=== PATIENT | female | born 1985 | race Caucasian/White ===

== ENCOUNTER → 2016-06-18 | Outpatient (CLI) | payer OTHER ==
[2016-06-18 13:33] LABS: CH 31.6; CHCM 33.9; HCT 38.7 % (34.0-46.0); HDW 2.43; MCH 31.3 pg (25.0-35.0); MCHC 33.5 g/dL (31.0-37.0); MCV 93.7 fL (80.0-100.0); Mean Platelet Volume 7.1; RBC 4.13 m/uL (3.80-5.40); RDW 12.9 % (11.5-15.5); WBC 9.1 k/uL (3.8-10.6)
[2016-06-18 13:43] LABS: Glucose 84 mg/dL (74-99); Non-African American GFR(MDRD) >60 (>60 ml/min/1.73 sqM)
[2016-06-18 14:16] LABS: Hepatitis B Surface Ag Index 0.08
[2016-06-20 08:08] LABS: HIV-1/HIV-2 Ab Screen NONREAC (NON REAC)
== END | disposition home or self-care (01) ==
LOC: LABWHC1 13:06
PROVIDERS: ATTEND Obstetrics & Gynecology
DX: Z34.80 Encounter for supervision of other normal pregnancy, unspecified trimester (principal); Z3A.00 Weeks of gestation of pregnancy not specified
CPT/HCPCS: 36415; 82565; 82947; 85027; 86762; 86780; 86850; 86900; 86901; 87340; 87389

== ENCOUNTER 2016-11-01 10:12 | Outpatient (CLI) | payer OTHER ==
[2016-11-01 11:23] VITALS: BP 119/63; PULSE 90; RESP 16; TEMP 98
[2016-11-01 11:36] LABS: Amorphous Sediment,Urine Rare /hpf; Appearance,Urine Cloudy (Clear); Bacteria,Urine Occasional /hpf; Bilirubin,Urine Negative (Negative); Glucose,Urine (UA) Negative (Negative); Ketones,Urine Negative (Negative); Leukocyte Esterase,Urine Negative (Negative); Nitrite,Urine Negative (Negative); PH, Urine 7.5 (5.0-8.0); Particle Count 4182; Protein,Urine Negative (Negative); RBC,Urine <1 /hpf (0-5); Specific Gravity,Urine 1.004 (1.001-1.035); Squamous Epithelial Cell,Urine 1 /hpf (0-4); UA Billing (MACRO vs. MICRO) MICRO; Urobilinogen,Urine <2.0 mg/dL (<2.0); WBC,Urine 1 /hpf (0-5)
--- NOTE | 2016-11-02 16:13 | P.MSEPDOC ---
Presenting Problems - Arrival Data Date of Arrival on Unit: 11/01/16 Time of Arrival on Unit: 10:12 Mode of Transport: Wheelchair - Complaint OB-Reason for Admission/Chief Complaint: Possible Onset of Labor Medical History - Information : 2 Para: 1 Term: 0 : 1 Abortions: Spontaneous or Elective: 0 Number of Living Children: 1 - Gestational Age Expected Date of Delivery: 01/13/17 Gestational Age by ELLEN (wks/days): 29 Weeks and 5 Days - History Complications: Prior Review of Systems - Review of Systems Constitutional: No problems Breast: No problems ENT: No problems Cardiovascular: No problems Respiratory: No problems Gastrointestinal: No problems Genitourinary: No problems Musculoskeletal: No problems Neurological: No problems Skin: No problems Vital Signs - Temperature Temperature: 98.0 F Temperature Source: Oral - Pulse Right Sitting Pulse Rate: 90 Pulse Assessment Method: Automatic Cuff - Respirations Respiratory Rate: 16 Oxygen Delivery Method: Room Air - Blood Pressure Right Arm Blood Pressure: 119/63 Blood Pressure Mean: 81 Blood Pressure Source: Automatic Cuff Medical Screen Scoring (Pre) - Cervical Exam Dilation: 1-3 cm = 1 Effacement: More than 50% = 2 Membranes: Intact - Uterine Contractions Frequency: N/A Duration: N/A Intensity: N/A - Maternal Vital Signs Maternal Temperature: N/A Maternal Blood Pressure: N/A Signs of Preeclampsia: N/A Maternal Respirations: N/A - Maternal Trauma Maternal Trauma: N/A - Assessment Baseline FHR: 130 Heart Rate - NICHD Category: Category I (Normal) = 0 NST: Reactive - Total Score Total Score (Pre): 3 - Level of Risk Level of Risk: Low (0-5) Disposition - Disposition OB Disposition: Physician follow up in office, Discharge to home, Written follow up instructions reviewed Discharge Date: 11/01/16 Discharge Time: 12:45 I agree with the RN Medical Screening Exam: Yes Risk & Benefit of care provided described in d/c instruction: Yes Diagnosis: LABOR WITHOUT DELIVERY, THIRD TRIMESTER
== END 2016-11-01 12:45 | disposition home or self-care (01) ==
LOC: FBPOP 10:12
PROVIDERS: ATTEND Obstetrics & Gynecology
DX: O60.03 Preterm labor without delivery, third trimester (principal); Z3A.29 29 weeks gestation of pregnancy
CPT/HCPCS: 59025; 82731; 81001; G0463; 99213

== ENCOUNTER → 2016-12-04 | Outpatient (CLI) | payer OTHER ==
[2016-12-04 18:09] LABS: Hemoglobin A1C 5.7 % (4.2-6.1)
== END | disposition home or self-care (01) ==
LOC: LABWHC1 17:00
PROVIDERS: ATTEND Obstetrics & Gynecology Maternal & Fetal Medicine
DX: Z34.90 Encounter for supervision of normal pregnancy, unspecified, unspecified trimester (principal); Z3A.00 Weeks of gestation of pregnancy not specified
CPT/HCPCS: 36415; 82947; 83036

== ENCOUNTER 2016-12-16 19:44 | Outpatient (CLI) | payer OTHER ==
[2016-12-16 23:20] VITALS: BP 100/57; PULSE 98; RESP 16; TEMP 98.5
--- NOTE | 2016-12-17 08:27 | P.MSEPDOC ---
Presenting Problems - Arrival Data Date of Arrival on Unit: 12/16/16 Time of Arrival on Unit: 19:44 Mode of Transport: Wheelchair - Complaint OB-Reason for Admission/Chief Complaint: Other Comment: shortness breath and lig pain in pelvis Medical History - Information : 2 Para: 1 Term: 0 : 1 Abortions: Spontaneous or Elective: 0 Number of Living Children: 1 - Gestational Age Expected Date of Delivery: 01/13/17 Gestational Age by ELLEN (wks/days): 36 Weeks and 1 Days Review of Systems - Review of Systems Constitutional: No problems Breast: No problems ENT: No problems Cardiovascular: No problems Respiratory: No problems Gastrointestinal: No problems Genitourinary: No problems Musculoskeletal: No problems Neurological: No problems Skin: No problems Comment: resp easy non labored Vital Signs - Temperature Temperature: 98.5 F Temperature Source: Oral - Pulse Left Pulse Oximetery Pulse Rate: 98 Pulse Assessment Method: Pulse Oximetry - Respirations Respiratory Rate: 16 Oxygen Delivery Method: Room Air - Blood Pressure Left Arm Blood Pressure: 100/57 Blood Pressure Mean: 71 Blood Pressure Source: Automatic Cuff Medical Screen Scoring (Pre) - Cervical Exam Dilation: Exam Deferred Effacement: Exam Deferred - Uterine Contractions Frequency: N/A - Maternal Vital Signs Maternal Temperature: N/A Maternal Blood Pressure: N/A Signs of Preeclampsia: N/A Maternal Respirations: N/A - Maternal Trauma Maternal Trauma: N/A - Assessment Heart Rate - NICHD Category: Category I (Normal) = 0 NST: Reactive - Total Score Total Score (Pre): 0 Physician Notification (Pre) - Physician Notified Physician Notified Date: 12/16/16 Physician Notified Time: 20:25 Physician/Practitioner Notifed:: fouzia Welsh Order Received: Yes (discharge) Disposition - Disposition OB Disposition: Discharge to home Discharge Date: 12/16/16 Discharge Time: 21:05 I agree with the RN Medical Screening Exam: Yes Risk & Benefit of care provided described in d/c instruction: Yes Diagnosis: FALSE LABOR BEFORE 37 COMPLETED WEEKS OF GEST, THIRD TRI
== END 2016-12-16 21:05 | disposition home or self-care (01) ==
LOC: FBPOP 19:44
PROVIDERS: ATTEND Obstetrics & Gynecology
DX: O47.03 False labor before 37 completed weeks of gestation, third trimester (principal); Z3A.36 36 weeks gestation of pregnancy
CPT/HCPCS: 59025; G0463; 99213

== ENCOUNTER 2016-12-29 18:37 | Outpatient (CLI) | payer OTHER ==
[2016-12-29 20:27] VITALS: BP 128/70; PULSE 90; RESP 16; TEMP 96.6
--- NOTE | 2016-12-30 07:57 | P.MSEPDOC ---
Presenting Problems - Arrival Data Date of Arrival on Unit: 12/29/16 Time of Arrival on Unit: 18:45 Mode of Transport: Wheelchair - Complaint OB-Reason for Admission/Chief Complaint: Possible Onset of Labor, Acute Nausea/ Vomiting, Pain Comment: back/abd pain, nausea & vomiting all day (9a-1430) but has since eaten and tolerated Medical History - Information : 2 Para: 1 Term: 0 : 1 Abortions: Spontaneous or Elective: 0 Number of Living Children: 1 - Gestational Age Expected Date of Delivery: 01/13/17 Gestational Age by ELLEN (wks/days): 38 Weeks and 0 Days - History Complications: GBS+, Incompetent Cervix, Prior Comment: hx of 27 week delivery, GBS+ with this Review of Systems - Review of Systems Constitutional: No problems Breast: No problems ENT: No problems Cardiovascular: No problems Respiratory: No problems Gastrointestinal: No problems Genitourinary: No problems Musculoskeletal: No problems Neurological: No problems Skin: No problems Comment: back/sciatic pain Vital Signs - Temperature Temperature: 96.6 F Temperature Source: Temporal Artery Scan - Pulse Right Pulse Rate: 90 - Respirations Respiratory Rate: 16 - Blood Pressure Right Arm Blood Pressure: 128/70 Blood Pressure Mean: 89 Blood Pressure Source: Automatic Cuff Medical Screen Scoring (Pre) - Cervical Exam Dilation: 4-7 cm = 2 Effacement: More than 50% = 2 Membranes: Intact - Uterine Contractions Frequency: > 5 minutes apart = 1 - Maternal Vital Signs Maternal Temperature: N/A Maternal Blood Pressure: N/A Signs of Preeclampsia: N/A - Assessment Baseline FHR: 125 Heart Rate - NICHD Category: Category I (Normal) = 0 NST: Reactive Position: N/A Station: N/A - Total Score Total Score (Pre): 5 - Level of Risk Level of Risk: Low (0-5) Medical Screen Scoring (Post) - Cervical Exam Dilation: 4-7 cm = 2 Effacement: More than 50% = 2 Membranes: Intact - Uterine Contractions Frequency: > 5 minutes apart = 1 Duration: N/A Intensity: N/A - Maternal Vital Signs Maternal Temperature: N/A - Assessment Heart Rate: 120 Heart Rate - NICHD Category: Category I (Normal) = 0 NST: Reactive - Total Score Total Score (Post): 5 - Post Treatment Level of Risk Post Treatment Level of Risk: Low (0-5) Physician Notification (Post) - Physician Notified Physician Notified Date: 12/29/16 Physician Notified Time: 20:08 Physician/Practitioner Notified:: Dr Mcwilliams - Notification Comment Comment: hx 27wk delivery, GBS+, reactive fhts, irregular cntrx not palpable or currently felt by pt, c/o back/sciatic pain that wraps in to pelvic bones, unchaged vag exam, no bleeding or leaking, no apparent distress. orders to d/c home with instructions, take tylenol prn, heating pad, warm bath Disposition - Disposition OB Disposition: Discharge to home Discharge Date: 12/29/16 Discharge Time: 20:30 I agree with the RN Medical Screening Exam: Yes Risk & Benefit of care provided described in d/c instruction: Yes Diagnosis: FALSE LABOR AT OR AFTER 37 COMPLETED WEEKS OF GESTATION
== END 2016-12-29 20:31 | disposition home or self-care (01) ==
LOC: FBPOP 18:37
PROVIDERS: ATTEND Obstetrics & Gynecology
DX: O47.1 False labor at or after 37 completed weeks of gestation (principal); Z3A.38 38 weeks gestation of pregnancy
CPT/HCPCS: 59025; G0463; 99213

== ENCOUNTER 2017-01-05 19:14 | Outpatient (CLI) | payer OTHER ==
[2017-01-05 20:38] VITALS: BP 129/76; PULSE 96; RESP 17; TEMP 97.1
--- NOTE | 2017-01-05 21:02 | P.MSEPDOC ---
Presenting Problems - Arrival Data Date of Arrival on Unit: 01/05/17 Time of Arrival on Unit: 19:14 Mode of Transport: Wheelchair - Complaint OB-Reason for Admission/Chief Complaint: Possible Onset of Labor Comment: cnxs Medical History - Information : 2 Para: 1 Term: 0 : 1 Abortions: Spontaneous or Elective: 0 Number of Living Children: 1 - Gestational Age Expected Date of Delivery: 01/13/17 Gestational Age by ELLEN (wks/days): 38 Weeks and 6 Days - History Complications: GBS+, Prior Comment: Hx delivery with first and treated for labor during this -has been dilated since 27 weeks gestation Review of Systems - Review of Systems Constitutional: No problems Breast: No problems ENT: No problems Cardiovascular: No problems Respiratory: No problems Gastrointestinal: No problems Genitourinary: No problems Musculoskeletal: No problems Neurological: No problems Skin: No problems Vital Signs - Temperature Temperature: 97.1 F Temperature Source: Temporal Artery Scan - Pulse Pulse Oximetery Pulse Rate: 96 Pulse Assessment Method: Pulse Oximetry - Respirations Respiratory Rate: 17 Oxygen Delivery Method: Room Air O2 Sat by Pulse Oximetry: 97 - Blood Pressure Right Arm Blood Pressure: 129/76 Blood Pressure Mean: 93 Blood Pressure Source: Automatic Cuff Medical Screen Scoring (Pre) - Cervical Exam Dilation: 4-7 cm = 2 Effacement: More than 50% = 2 Membranes: Intact - Uterine Contractions Frequency: > 5 minutes apart = 1 Duration: N/A Intensity: N/A - Maternal Vital Signs Maternal Temperature: N/A Maternal Blood Pressure: N/A Signs of Preeclampsia: N/A Maternal Respirations: N/A - Maternal Trauma Maternal Trauma: N/A - Assessment Baseline FHR: 125 Heart Rate - NICHD Category: Category I (Normal) = 0 NST: Reactive Position: N/A Station: N/A - Total Score Total Score (Pre): 5 - Level of Risk Level of Risk: Low (0-5) Physician Notification (Pre) - Physician Notified Physician Notified Date: 01/05/17 Physician Notified Time: 19:29 Physician/Practitioner Notifed:: Virgilio Spoke With: Virgilio New Order Received: Yes (recheck cervix in one hour) - Notification Comment Comment: To re-check cervix in one hour, call with update Medical Screen Scoring (Post) - Cervical Exam Dilation: 4-7 cm = 2 Effacement: More than 50% = 2 Membranes: Intact - Uterine Contractions Frequency: > 5 minutes apart = 1 Duration: N/A Intensity: N/A - Maternal Vital Signs Maternal Temperature: N/A Signs of Preeclampsia: N/A Maternal Respirations: N/A - Maternal Trauma Maternal Trauma: N/A - Assessment Heart Rate: 125 Heart Rate - NICHD Category: Category I (Normal) = 0 NST: Reactive Position: N/A Station: N/A - Total Score Total Score (Post): 5 - Post Treatment Level of Risk Post Treatment Level of Risk: Low (0-5) Physician Notification (Post) - Physician Notified Physician Notified Date: 01/05/17 Physician Notified Time: 20:30 Physician/Practitioner Notified:: Virgilio Spoke With: Virgilio New Order Received: Yes (Discharge order) - Notification Comment Comment: Because of patient's close proximity to hospital, telephone order received to discharge patient home. pt to follow up with Dr. Hicks at next appt, this Friday. Disposition - Disposition OB Disposition: Discharge to home Discharge Date: 01/05/17 Discharge Time: 20:35 I agree with the RN Medical Screening Exam: Yes Risk & Benefit of care provided described in d/c instruction: Yes Diagnosis: FALSE LABOR AT OR AFTER 37 COMPLETED WEEKS OF GESTATION (Patient was 6 cm dilated 1 hour apart without appreciable contractions. Patient was 5 cm in the office most recently. The patient stated that she did not want induction of labor to Dr. Silvestre and lives only 15 minutes away, therefore is comfortable going home and return if any increasing contractions, leaking of fluid, vaginal bleeding.)
== END 2017-01-05 20:35 | disposition home or self-care (01) ==
LOC: FBPOP 19:14
PROVIDERS: ATTEND Obstetrics & Gynecology
DX: O47.1 False labor at or after 37 completed weeks of gestation (principal); Z3A.38 38 weeks gestation of pregnancy
CPT/HCPCS: 59025; G0463; 99213

== ENCOUNTER 2017-01-07 16:19 | Inpatient (IN) | payer OTHER ==
[2017-01-07] MEDS ORDERED: OXYTOCIN 10 UNIT/ML 1 ML VIAL IM PRN (16:24)
[2017-01-07] MEDS ORDERED: TERBUTALINE 1 MG/ML VIAL SQ PRN (16:24)
[2017-01-07] MEDS ORDERED: CARBOPROST TROMETHAMINE 250 MCG/ML 1 ML AMP IM PRN (16:24)
[2017-01-07] MEDS ORDERED: METHYLERGONOVINE 0.2 MG/ML 1 ML AMP IM PRN (16:24)
[2017-01-07] MEDS ORDERED: LIDOCAINE 1% (PF) 10 MG/ML (30 ML SDV) SQ PRN (16:24)
[2017-01-07] MEDS ORDERED: CLINDAMYCIN 900 MG in DEXTROSE 5% IN WATER 50 ML IVPB STA ×2 (16:26)
--- NOTE | 2017-01-07 16:32 | P.HPOB ---
History of Present Illness H&P Date: 01/07/17 Chief Complaint: Intrauterine at term advanced cervical dilation Patient is a 31-year-old with a history of very early delivery with her last . She is been followed very closely with this and has been dilated since approximately 27 weeks. She was actually transferred to maternal- medicine with funneling and a shortened cervix at that time but following stick steroids and progestin injections we have been able to keep her all the way to 38 weeks. At this time however she is seen and evaluated in the office and she is dilated to 8 cm 90% effaced and -2 station. She is sent over to labor and delivery for antibiotics and then expected delivery later today. Her on physical exam vital signs are stable and afebrile. Heart regular, lungs clear, extremities without pain. Osteopathic exams unremarkable. Her pertinent labs do include O+ blood type Rh antibody negative, rubella immune, hepatitis B surface antigen as well as RPR were negative but again groupie strep was positive. Assessment intrauterine at term. Plan expect spontaneous vaginal delivery. Past Medical History Past Medical History: No Reported History History of Any Multi-Drug Resistant Organisms: None Reported Past Surgical History: No Surgical Hx Reported Additional Past Surgical History / Comment(s): nasal surgery when she was 19 Past Anesthesia/Blood Transfusion Reactions: No Reported Reaction Smoking Status: Never smoker - Past Family History Father Family Medical History: Cancer, Mitral Valve Prolapse (MVP) Medications and Allergies Home Medications Medication Instructions Recorded Confirmed Type No Known Home Medications [No 01/05/17 01/07/17 History Known Home Medications] Allergies Allergy/AdvReac Type Severity Reaction Status Date / Time Penicillins Allergy Rash/Hives Verified 01/07/17 16:23 Sulfa (Sulfonamide Allergy Rash/Hives Verified 01/07/17 16:23 Antibiotics) tree nut [Nut] Allergy Anaphylaxis Verified 01/07/17 16:23 lactase AdvReac Abdominal Verified 01/07/17 16:23 Pain Exam Osteopathic Statement: *. No significant issues noted on an osteopathic structural exam other than those noted in the History and Physical/Consult. - Vital Signs Vital signs: Intake and Output 01/07/17 01/07/17 01/07/17 06:59 14:59 22:59 Other: Weight 74.389 kg Patient Weight 01/08/17 06:59 Weight 74.389 kg
[2017-01-07] MEDS: LACTATED RINGERS 1,000 ML IV SCH ×2 (16:43→22:57)
[2017-01-07 16:52] VITALS: BMI 26.4
[2017-01-07 16:59] LABS: Basophils % (A) 0 %; CH 29.6; Eosinophils # (A) 0.1 k/uL (0-0.7); Eosinophils % (A) 2 %; HCT 34.7 % (34.0-46.0); HDW 3.08; HGB 11.8 gm/dL (11.4-16.0); Luc # (Auto) 0.25; Luc % (Auto) 3; Lymphocytes # (A) 2.2 k/uL (1.0-4.8); Lymphocytes % (A) 25 %; MCH 30.6 pg (25.0-35.0); MCHC 33.9 g/dL (31.0-37.0); MCV 90.2 fL (80.0-100.0); Monocytes # (A) 0.5 k/uL (0-1.0); Monocytes % (A) 6 %; Neutrophils # (A) 5.6 k/uL (1.3-7.7); Neutrophils % (A) 64 %; RBC 3.85 m/uL (3.80-5.40); RDW 13.8 % (11.5-15.5); WBC 8.7 k/uL (3.8-10.6); WBC (Perox) 9.14
[2017-01-07] MEDS ORDERED: OXYTOCIN 20 UNITS/1000 ML NS 1,000 ML IV SCH ×2 (21:10→23:00)
[2017-01-07] MEDS ORDERED: HYDROCORTISONE 2.5% RECTAL CREAM 30 GM TUBE RECTAL PRN (22:53)
[2017-01-07] MEDS ORDERED: diphenhydrAMINE 50 MG CAP PO PRN (22:53)
[2017-01-07] MEDS ORDERED: LANOLIN CREAM 5 GM TUBE TOPICAL PRN (22:53)
[2017-01-07] MEDS ORDERED: ZOLPIDEM 5 MG TAB PO PRN (22:53)
[2017-01-07] MEDS ORDERED: ACETAMINOPHEN TAB 325 MG TAB PO PRN (22:53)
[2017-01-07] MEDS ORDERED: diphenhydrAMINE 25 MG CAP PO PRN (22:53)
[2017-01-07] MEDS ORDERED: Acetaminophen-Codeine 300-30mg TAB PO PRN (22:53)
[2017-01-07] MEDS ORDERED: WITCH HAZEL 1 EACH MED..PAD TOPICAL PRN (22:53)
[2017-01-07] MEDS ORDERED: BENZOCAINE/MENTHOL SPRAY 1 GM/SPRAY AEROSOL TOPICAL PRN (22:53)
[2017-01-07] MEDS ORDERED: diphenhydrAMINE 50 MG/ML 1 ML VIAL IVP PRN ×2 (22:53)
[2017-01-07] MEDS ORDERED: SIMETHICONE 80 MG CHEWABLE PO PRN (22:53)
--- NOTE | 2017-01-07 23:00 | P.PROBDLV ---
Vaginal Delivery Note - . Vaginal Delivery Note: 31-year-old presents at 39 weeks and 1 day for induction of labor. She presented 7-8 cm dilated, 90% effaced, -2 station. heart tones 135-140 with moderate variability and reactive. She is GBS positive, so clindamycin was started. 4 hours after the clindamycin was given, amniotomy was performed at 2107, clear fluid noted. Since she wasn't kateryna Pitocin augmentation was also started. Her cervix was completely dilated at 2230. She pushed, and delivered a viable male over midline episiotomy at 2236. Head delivered OA, nuchal cord 1 easily reduced, anterior shoulder which was the left shoulder delivered gentle downward traction for by posterior shoulder and rest of body. Nose and mouth bulb suctioned, cord clamped and cut, infant placed on mother's abdomen. Apgars 9, 9, weight 7 lbs. 7 oz. Placenta delivered spontaneously, intact with three-vessel cord at 2238. Vagina, cervix, and perineum were inspected. Second-degree midline episiotomy was repaired with 3- 0 Vicryl. Estimated blood loss 200 mL. Mother and baby in stable condition.
[2017-01-07] MEDS: IBUPROFEN 600 MG TAB PO PRN (23:09)
[2017-01-08] MEDS ORDERED: CLINDAMYCIN 900 MG in DEXTROSE 5% IN WATER 50 ML IVPB SCH ×2
[2017-01-08] MEDS: LACTATED RINGERS 1,000 ML IV SCH ×2 (05:15→05:16)
[2017-01-08] MEDS: IBUPROFEN 600 MG TAB PO PRN ×3 (06:20→20:08)
[2017-01-08] MEDS: SENNOSIDES-DOCUSATE SODIUM 1 EACH TAB PO SCH ×2 (07:22→20:09)
[2017-01-08] MEDS: Acetaminophen-Codeine 300-30mg TAB PO PRN ×3 (09:07→22:55)
--- NOTE | 2017-01-08 16:24 | P.PNOBGVD ---
Subjective - Subjective Principal diagnosis: day 1 Interval history: Doing very well complaints Patient reports: Reports appetite normal [place]: doing well Objective - Latest Vital Signs Latest vital signs: Vital Signs Temp Pulse Resp BP Pulse Ox 01/08/17 11:40 97.4 F L 67 18 96 01/08/17 07:28 97.9 F 70 16 116/72 96 01/08/17 04:00 98.5 F 90 18 117/60 100 01/08/17 00:45 96.6 F L 83 16 129/70 01/08/17 00:15 79 16 134/76 01/07/17 23:45 64 16 133/76 01/07/17 23:30 84 16 119/82 01/07/17 23:15 80 18 119/72 01/07/17 23:00 80 18 118/61 01/07/17 22:45 97.1 F L 92 18 133/80 Intake and Output 01/08/17 01/08/17 01/08/17 06:59 14:59 22:59 Other: # Voids 1 # Bowel Movements 0 - Exam Lungs: bilateral: normal Chest: Normal S1, Normal S2 Extremities: Present: normal Abdomen: Present: normal appearance, soft Uterus: Present: normal, firm
[2017-01-08 16:46] VITALS: RESP 16
[2017-01-09] MEDS: IBUPROFEN 600 MG TAB PO PRN (06:49)
[2017-01-09 08:12] VITALS: BP 115/67; PULSE 96; TEMP 97.5
[2017-01-09] MEDS: SENNOSIDES-DOCUSATE SODIUM 1 EACH TAB PO SCH (08:23)
--- NOTE | 2017-01-09 09:31 | P.DS ---
Providers Date of admission: 01/07/17 16:19 Expected date of discharge: 01/09/17 Attending physician: Arely Brown Primary care physician: Arely Brown Hospital Course: Terri is doing very well day 2. She is locking, voiding, and she is tolerating her diet. She voices no complaint. Vital signs stable and afebrile. Heart regular, lungs clear, extremities without pain. We'll plan discharged home today. Prescriptions for pain medication including Tylenol 3 and Motrin are provided. Prescription for a breast pump is been provided. Discharge instructions again are thoroughly reviewed and all questions are answered for her prior to her discharge. Assessment day 2. Plan discharged home follow me in 6 weeks. Patient Condition at Discharge: Good Plan - Discharge Summary New Discharge Prescriptions: New Acetaminophen-Codeine 300-30mg [Tylenol #3] 1 tab PO Q4H PRN #30 tablet PRN Reason: Pain Ibuprofen [Motrin] 600 mg PO Q6HR PRN #30 tab PRN Reason: Pain Discharge Medication List Acetaminophen-Codeine 300-30mg [Tylenol #3] 1 tab PO Q4H PRN #30 tablet [Rx] Ibuprofen [Motrin] 600 mg PO Q6HR PRN #30 tab 01/09/17 [Rx] Follow up Appointment(s)/Referral(s): Eleazar Hicks DO [Doctor of Osteopathic Medicine] - 6 Weeks Activity/Diet/Wound Care/Special Instructions: No heavy lifting, limit stairs and driving, and pelvic rest. If any high temperatures, heavy bleeding, or severe pain call my office Discharge Disposition: HOME SELF-CARE
== END 2017-01-09 11:15 | disposition home or self-care (01) | DRG 775 ==
LOC: 4FBP 16:19
PROVIDERS: ADMIT Obstetrics & Gynecology; ATTEND Obstetrics & Gynecology
PROC: 0W8NXZZ Division of Female Perineum, External Approach (ICD-10-PCS; principal; 2017-01-07)
PROC: 10E0XZZ Delivery of Products of Conception, External Approach (ICD-10-PCS; principal; 2017-01-07)
DX: O69.81X0 Labor and delivery complicated by cord around neck, without compression, not applicable or unspecified (principal); O99.824 Streptococcus B carrier state complicating childbirth; Z37.0 Single live birth; Z3A.39 39 weeks gestation of pregnancy; Z88.0 Allergy status to penicillin; Z88.2 Allergy status to sulfonamides; Z80.9 Family history of malignant neoplasm, unspecified
CPT/HCPCS: 85025; 88307; 88312

== ENCOUNTER → 2021-06-14 | Outpatient (CLI) | payer OTHER ==
--- NOTE | 2021-06-14 15:06 | CT ---
EXAMINATION TYPE: CT sinus wo con DATE OF EXAM: 06/14/2021 COMPARISON: No previous CT scan is available for comparison HISTORY: sinus congestion, headaches, ringing in ears CT DLP: 429.4 mGycm. Automated Exposure Control for Dose Reduction was Utilized. TECHNIQUE: CT scan of the sinuses is performed without contrast, axial images are obtained, coronal r eformatted images are also reviewed. FINDINGS: Mild deviation of the bony nasal septum is slightly convex to the left side. Mild mucosal thickening of the inferior aspect of the left nasal fossa. Paradoxical middle turbinates. Accessory ostium versu s previous surgical intervention seen at the medial inferior aspect of the maxillary sinus bilaterall y, larger on the left side. There is also right maxillary antrostomy and right uncinectomy. Mild mucosal thickening of the maxillary sinuses. Unremarkable frontal sinus, ethmoid air cells and l eft sinus compartment. Minimal mucosal thickening of the right sphenoid sinus. Patent sphenoethmoidal recesses. Clear mastoid air cells. Clear visualized portion of the brain and orbits. IMPRESSION: Suspected previous endoscopic sinus surgery as described above, please correlate with the patient's s urgical history. Mild mucosal thickening maxillary sinuses and right sphenoid sinus compartment. Unre markable frontal sinus and ethmoid air cells.
== END | disposition home or self-care (01) ==
LOC: RADCTMAIN 14:11
PROVIDERS: ATTEND Otolaryngology
DX: J34.89 Other specified disorders of nose and nasal sinuses (principal); J34.2 Deviated nasal septum
CPT/HCPCS: 70486

== ENCOUNTER 2022-05-15 06:43 | Day surgery (SDC) | payer OTHER ==
[2022-05-10 11:34] VITALS: BMI 25.0
[~2022-05-15 06:43] MED LIST: CLINDAMYCIN 600 MG in DEXTROSE 5% IN WATER 50 ML IVPB PRN; DEXAMETHASONE SOD PHOSPHATE 4 MG/ML 1 ML VIAL IV ONE; DEXAMETHASONE SOD PHOSPHATE 4 MG/ML 1 ML VIAL IV PRN; FAMOTIDINE 20 MG/2 ML VIAL IV PRN; LACTATED RINGERS 1,000 ML IV SCH; LIDOCAINE 1% (10MG/ML) FOR IV START INTRADERMA PRN; ONDANSETRON 4 MG/2 ML VIAL IVP ONE; ONDANSETRON 4 MG/2 ML VIAL IVP PRN
[2022-05-15] MEDS ORDERED: METOCLOPRAMIDE 5 MG/ML 2 ML VIAL IVP PRN (07:00)
[2022-05-15] MEDS ORDERED: HYDROmorphone 0.5 MG/0.5 ML SYRINGE IVP PRN (07:00)
[2022-05-15] MEDS: OXYMETAZOLINE 0.05% NASL SPRAY 1 SPRAY BOTTLE EA NOSTRIL PRN ×5 (07:20→07:40)
[2022-05-15] MEDS ORDERED: LACTATED RINGERS 1,000 ML IV ONE (07:25)
[2022-05-15] MEDS ORDERED: LIDOCAINE 2% INJ 20 MG/ML (2 ML VIAL) ONE (08:24)
[2022-05-15] MEDS ORDERED: PHENYLEPHRINE-0.9% NACL SYG 1,000 MCG/10 ML SYRINGE ONE (08:24)
[2022-05-15] MEDS ORDERED: fentaNYL (PF) 50 MCG/ML 2 ML AMP ONE (08:24)
[2022-05-15] MEDS ORDERED: ceFAZolin 1,000 MG VIAL ONE (08:24)
[2022-05-15] MEDS ORDERED: SODIUM CHLORIDE 0.9% 100 ML BAG ONE (08:24)
[2022-05-15] MEDS ORDERED: PROPOFOL 10 MG/ML 20 ML VIAL IV ONE (08:24)
[2022-05-15] MEDS ORDERED: SUCCINYLCHOLINE CHLORIDE 200 MG/10 ML VIAL IV ONE (08:24)
[2022-05-15] MEDS ORDERED: MIDAZOLAM 2 MG/2 ML VIAL ONE (08:24)
[2022-05-15] MEDS ORDERED: LIDOCAINE 1%-EPI 1:100,000 20 ML VIAL SUBMUCOSAL ONE ×2 (08:39)
[2022-05-15] MEDS ORDERED: BACITRACIN ZINC 500 UNIT/GM OINT 28.4 GM TUBE TOPICAL ONE ×2 (08:44→09:09)
--- NOTE | 2022-05-15 09:23 | P.PCN ---
Date of Procedure: 05/15/22 Preoperative Diagnosis: Deviated nasal septum Inferior turbinate hypertrophy Chronic sinusitis Postoperative Diagnosis: Same Procedure(s) Performed: Septoplasty Outfracture and submucous resection inferior turbinates Bilateral endoscopic sinus surgery including bilateral maxillary antrostomy and right sphenoidotomy Anesthesia: LENKA Surgeon: Adrian Cason Estimated Blood Loss (ml): 5 Pathology: other (Nasal septal bone and cartilage and sinus contents) Condition: stable Disposition: PACU Indications for Procedure: 37-year-old white female with difficulties with chronic nasal airway obstruction congestion and recurrent/chronic sinusitis Operative Findings: Nasal septum deviated to the left with inferior turbinate hypertrophy bilaterally. Maxillary ostia were obstructed bilaterally as well as the right sphenoid sinus with bilateral maxillary and right sphenoid mucosal thickening. There was evidence of previous septoplasty with bone missing in the posterior septum although cartilage deviated to the left. Surgical Maxillary antrostomy on the right present but small Description of Procedure: Patient was brought in the operative suite and placed in a supine position. Patient underwent induction of general anesthesia with oral endotracheal intubation without difficulty. The patient was prepped and draped in usual aseptic fashion. Orbits were in the operating field for monitoring throughout the case computed tomography scan was on the computer screen for review throughout the case. 1 Percent lidocaine with [id number] epinephrine was infused submucosally both sides nasal septum as well as lateral nasal wall bilaterally. While this is taking vasoconstrictive effect the inferior turbinates were infractured with [place] elevator partial submucous resection inferior turbinates performed with ablation wand ablating a portion of the submucosal soft tissue and inferior turbinate bone. These were then outfractured with [place] elevator. A left hemitransfixion incision was made with the mucoperichondrial muc operiosteal flap on left elevated. Deviated cartilage at the posterior aspect of the conjunctiva cartilage was removed vertically corrected the nasoseptal deformity. Nasal septum was closed with a running 4-0 chromic suture and the hemitransfixion incision. 0 endoscopic examination is performed bilaterally Being on the left the middle turbinate was infractured with [place] elevator and maxillary ostium was located ballpoint probe and infundibulotomy and uncinectomy were performed with microdebrider and maxillary ostium was enlarged at the expense the anterior posterior fontanelle taking care anteriorly attention to the lacrimal bone. Mucosal thickening in the maxillary sinus posteriorly was removed with Forceps. Attention was then turned to the right where the sphenoidotomy was performed with straight suction and straight [place]akes[place] forcep and explored with 0 endoscope and small polyps removed. Middle turbinate was then medialized with the [place] elevator and the maxillary ostium was enlarged further at the expense anterior posterior fontanelle taking care anteriorly not to injure the lacrimal bone and the sinus was explored with 30 and 70 endoscope with giraffe forcep used to remove small polyps. Standard nasal pore nasal dressing placed the middle meatus and direct visualization bilaterally and nasal septal splints coated bacitracin ointment placed in nasal cavities and sutured trans-septally with a 4-0 nylon suture. Suctioned in oral gastric fashion and was allowed to emerge from general anesthesia having tolerated procedure well was extubated in the operating suite and transferred to postop recovery area in satisfactory condition.
[2022-05-15 09:34] VITALS: TEMP 97
[2022-05-15 10:13] VITALS: PULSE 71
[2022-05-15 10:29] VITALS: BP 121/82; RESP 16
== END 2022-05-15 10:48 | disposition home or self-care (01) ==
LOC: OR 06:43
PROVIDERS: ATTEND Otolaryngology
DX: J34.2 Deviated nasal septum (principal); J34.3 Hypertrophy of nasal turbinates; J32.0 Chronic maxillary sinusitis; J01.91 Acute recurrent sinusitis, unspecified; J30.9 Allergic rhinitis, unspecified; J32.3 Chronic sphenoidal sinusitis; F32.A Depression, unspecified; Z88.0 Allergy status to penicillin; Z88.2 Allergy status to sulfonamides; Z91.048 Other nonmedicinal substance allergy status; Z91.018 Allergy to other foods; Z79.2 Long term (current) use of antibiotics; Z79.899 Other long term (current) drug therapy
CPT/HCPCS: 81025; 30520; 30140; 31256; 31287; J2250; J0330; J1100; J2765; J2405; J0690; J3010; J2370; J2704; J2001

== ENCOUNTER → 2024-08-24 | Outpatient (CLI) | payer OTHER | LOC: CPPFTMAIN 10:32 | PROVIDERS: ATTEND Family Medicine | DX: R06.02 Shortness of breath (principal); Z88.0 Allergy status to penicillin; Z88.2 Allergy status to sulfonamides; Z91.018 Allergy to other foods; Z91.011 Allergy to milk products | CPT/HCPCS: 94060; 94726; 94729 ==